=== PATIENT | male | born 1960 | race Caucasian/White ===

== ENCOUNTER 2024-09-08 10:55 | Inpatient (IN) | payer OTHER ==
[2024-09-08 11:12] VITALS: BMI 28.1
[2024-09-08] MEDS ORDERED: POLYETHYLENE GLYCOL (HEALTHYLAX) 3350 17 GM PACKET PO PRN (11:24)
[2024-09-08] MEDS ORDERED: NALOXONE (NYS OPIOID OVERDOSE PROGRAM) 4 MG/0.1 ML SPRAY NS PRN (11:24)
[2024-09-08] MEDS ORDERED: DICYCLOMINE HCL 10 MG CAPSULE PO PRN (11:24)
[2024-09-08] MEDS ORDERED: NALOXONE (NARCAN) HCL 4 MG/0.1 ML SPRAY NS PRN (11:24)
[2024-09-08] MEDS ORDERED: P-EPHED 60MG/TRIPROLIDI 2.5MG TABLET PO PRN (11:24)
[2024-09-08] MEDS ORDERED: IBUPROFEN 600 MG TABLET (FP) PO PRN (11:24)
[2024-09-08] MEDS ORDERED: BENZONATATE 200 MG CAPSULE PO PRN (11:24)
[2024-09-08] MEDS ORDERED: LOPERAMIDE HCL 2 MG CAPSULE PO PRN (11:24)
[2024-09-08] MEDS ORDERED: MAGNESIUM HYDROX 2400MG/30ML ORAL SUSPENSION 30 ML CUP PO PRN (11:24)
[2024-09-08] MEDS ORDERED: IBUPROFEN 400 MG TABLET (FP) PO PRN (11:24)
[2024-09-08] MEDS ORDERED: BISMUTH SUBSALICYLATE 524 MG/30 ML PO PRN (11:24)
[2024-09-08] MEDS ORDERED: MAG HYDROX/AL HYDROX/SIMETH 30 ML UNIT-DOSE CUP PO PRN (11:24)
[2024-09-08] MEDS ORDERED: guaiFENesin 600 MG TABLET.ER (FP) PO PRN (11:24)
[2024-09-08] MEDS ORDERED: BENZOCAINE/MENTHOL (CHLORASEPTIC ) LOZENGE MM PRN (11:24)
[2024-09-08] MEDS: METHOCARBAMOL 500 MG TABLET PO PRN (15:06)
[2024-09-08] MEDS: hydrOXYzine PAMOATE 25 MG CAPSULE (FP) PO PRN (15:06)
[2024-09-08] MEDS: amLODIPine BESYLATE 10 MG TABLET (FP) PO ONE (15:44)
[2024-09-08] MEDS: cloNIDine HCL 0.1 MG TABLET PO ONE (17:48)
[2024-09-08] MEDS: ONDANSETRON *ODT* 4 MG TABLET SL PRN (18:37)
[2024-09-08] MEDS: methaDONE HCL 10 MG TABLET (FOR DETOX USE ONLY) PO ONE (19:01)
[2024-09-08] MEDS: THIAMINE 100 MG TABLET PO SCH (22:26)
[2024-09-08] MEDS: MELATONIN 5 MG TABLETS PO SCH (22:26)
[2024-09-09] MEDS: PANTOPRAZOLE 20 MG TABLET PO SCH (07:23)
[2024-09-09] MEDS: predniSONE 10 MG TABLET (UD) PO SCH (09:49)
[2024-09-09] MEDS: PRENATAL VITAMINS W/ FOLIC ACID TABLET (FP) PO SCH (09:51)
[2024-09-09] MEDS: DICLOFENAC SODIUM TP PRN (11:00)
[2024-09-09] MEDS: [UNRECOGNIZED DRUG - OTHER] TP PRN (11:00)
[2024-09-09 13:23] LABS: HEMATOCRIT 34.8 % (35.4-49); HEMOGLOBIN 11.7 GM/dL (11.7-16.9); MCH 28.9 pg (25.7-33.7); MCHC 33.6 g/dl (32.0-35.9); MEAN CELL VOLUME 86.1 fl (80-96); MEAN PLT VOLUME 8.9 fl (7.5-11.1); PLATELET COUNT 331 10^3/uL (134-434); RBC 4.04 M/mm3 (4.00-5.60); RDW 14.8 % (11.9-15.9); WHITE BLOOD COUNT 7.8 K/mm3 (4.0-10.0)
[2024-09-09 13:55] LABS: CALCIUM 9.5 mg/dL (8.5-10.1)
[2024-09-09 13:56] LABS: ALBUMIN 3.3 g/dl (3.4-5.0); BLOOD UREA NITROGEN 18.5 mg/dL (7-18)
[2024-09-09 13:59] LABS: CREATININE 1.2 mg/dL (0.55-1.3)
[2024-09-09 14:00] LABS: BILIRUBIN,TOTAL 0.7 mg/dL (0.2-1); TOT PROT 6.8 g/dl (6.4-8.2)
[2024-09-09] MEDS: cloNIDine HCL 0.1 MG TABLET PO PRN (22:18)
[2024-09-09] MEDS: TETRAHYDROZOLINE HCL EYE DROPS OU PRN (22:41)
[2024-09-10] MEDS: methaDONE HCL 10 MG TABLET (FOR DETOX USE ONLY) PO ONE (09:18)
[2024-09-11] MEDS: ACETAMINOPHEN 325 MG TABLET (FP) PO PRN (08:45)
[2024-09-11] MEDS ORDERED: IBUPROFEN 600 MG TABLET (FP) PO PRN (08:59)
[2024-09-12] MEDS: methaDONE HCL 10 MG TABLET (FOR DETOX USE ONLY) PO ONE (09:44)
[2024-09-13] MEDS: amLODIPine BESYLATE 10 MG TABLET (FP) PO SCH (12:24)
[2024-09-13] MEDS: METOPROLOL TARTRATE 25 MG TABLET (FP) PO ONE (17:30)
[2024-09-14 06:27] VITALS: RESP 16; TEMP 97.8
[2024-09-14 09:31] VITALS: BP 164/102; PULSE 98
[2024-09-15] MEDS ORDERED: METHOTREXATE 2.5 MG TABLET PO SCH ×2 (09:00)
== END 2024-09-14 12:33 | disposition other institution (70) | DRG 773 ==
LOC: YASAS 10:55 → Y3N 14:19
PROVIDERS: ADMIT Allergy & Immunology; ATTEND Surgery
PROC: HZ2ZZZZ Detoxification Services for Substance Abuse Treatment (ICD-10-PCS; principal; 2024-09-08)
DX: F11.23 Opioid dependence with withdrawal (principal); F14.20 Cocaine dependence, uncomplicated; L40.50 Arthropathic psoriasis, unspecified; R03.0 Elevated blood-pressure reading, without diagnosis of hypertension; Z87.891 Personal history of nicotine dependence
CPT/HCPCS: 36415; 80053; 80305; 80307; 85027; 86593; 86780; 87811; 93005; 93010; Q0162

== ENCOUNTER 2024-09-14 13:02 | Inpatient (IN) | payer OTHER ==
[2024-09-14] MEDS ORDERED: guaiFENesin 600 MG TABLET.ER (FP) PO PRN (16:03)
[2024-09-14] MEDS ORDERED: NALOXONE HCL 0.4 MG/ML VIAL IVPUSH PRN (16:03)
[2024-09-14] MEDS ORDERED: BENZONATATE 200 MG CAPSULE PO PRN (16:03)
[2024-09-14] MEDS ORDERED: POLYETHYLENE GLYCOL (HEALTHYLAX) 3350 17 GM PACKET PO PRN (16:03)
[2024-09-14] MEDS ORDERED: NICOTINE POLACRILEX 4 MG LOZENGE BC PRN (16:03)
[2024-09-14] MEDS ORDERED: NICOTINE POLACRILEX 4 MG GUM BUC PRN (16:03)
[2024-09-14] MEDS ORDERED: NICOTINE 14 MG/24 HOURS TOPICAL PATCH TD PRN (16:03)
[2024-09-14] MEDS ORDERED: BENZOCAINE/MENTHOL (CHLORASEPTIC ) LOZENGE MM PRN (16:03)
[2024-09-14] MEDS ORDERED: NALOXONE (NARCAN) HCL 4 MG/0.1 ML SPRAY NS PRN (16:03)
[2024-09-14] MEDS ORDERED: IBUPROFEN 400 MG TABLET (FP) PO PRN (16:03)
[2024-09-14] MEDS: THIAMINE 100 MG TABLET PO SCH (21:57)
[2024-09-14] MEDS: MELATONIN 5 MG TABLETS PO SCH (21:57)
[2024-09-15] MEDS: DICLOFENAC SODIUM TP PRN (06:30)
[2024-09-15] MEDS: TETRAHYDROZOLINE HCL EYE DROPS OU PRN (06:30)
[2024-09-15] MEDS ORDERED: PATIENT'S OWN MEDICATION (NON-FORMULARY) (Dextran 70/Hypromellose [Artificial Tears Eye Dr OU PRN (06:48)
[2024-09-15] MEDS: METHOTREXATE 2.5 MG TABLET PO SCH (08:06)
[2024-09-15] MEDS ORDERED: PATIENT'S OWN MEDICATION (NON-FORMULARY) (Dextran 70/Hypromellose [Artificial Tears Eye Dr OU SCH (10:00)
[2024-09-15] MEDS: PRENATAL VITAMINS W/ FOLIC ACID TABLET (FP) PO SCH (10:45)
[2024-09-15] MEDS: PANTOPRAZOLE 20 MG TABLET PO SCH (10:45)
[2024-09-15] MEDS: predniSONE 10 MG TABLET (UD) PO SCH (10:45)
[2024-09-15] MEDS: MAG HYDROX/AL HYDROX/SIMETH 30 ML UNIT-DOSE CUP PO PRN (15:42)
[2024-09-15] MEDS: METHOCARBAMOL 500 MG TABLET PO PRN (21:19)
[2024-09-16] MEDS: PATIENT'S OWN MEDICATION (NON-FORMULARY) (Diclofenac Sodium 0.01 MG/MG Gel) TP SCH (05:46)
[2024-09-16] MEDS: IBUPROFEN 600 MG TABLET (FP) PO PRN (06:22)
[2024-09-16] MEDS ORDERED: DICYCLOMINE HCL 10 MG CAPSULE PO PRN (13:29)
[2024-09-16] MEDS ORDERED: BISMUTH SUBSALICYLATE 262 MG/15 ML BTL PO PRN (13:29)
[2024-09-16] MEDS ORDERED: ONDANSETRON *ODT* 4 MG TABLET SL PRN (13:29)
[2024-09-16] MEDS: MELATONIN 5 MG TABLETS PO SCH (21:12)
[2024-09-17] MEDS: hydrOXYzine PAMOATE 25 MG CAPSULE (FP) PO PRN (08:52)
[2024-09-17] MEDS: predniSONE 5 MG TABLET (UD) PO SCH (09:50)
[2024-09-17] MEDS: PATIENT'S OWN MEDICATION (NON-FORMULARY) (Etanercept [Enbrel] 50 MG/ML Syringe) SQ ONE (16:12)
[2024-09-17] MEDS ORDERED: PATIENT'S OWN MEDICATION (NON-FORMULARY) (Etanercept [Enbrel] 50 MG/ML Syringe) SQ ONE (16:30)
[2024-09-18] MEDS: ACETAMINOPHEN 325 MG TABLET (FP) PO PRN (06:11)
[2024-09-18] MEDS: NAPROXEN 500 MG TABLET PO ONE (10:26)
[2024-09-18] MEDS: MAGNESIUM HYDROX 2400MG/30ML ORAL SUSPENSION 30 ML CUP PO PRN (10:28)
[2024-09-19] MEDS: LOPERAMIDE HCL 2 MG CAPSULE PO PRN (12:41)
[2024-09-20] MEDS: GABAPENTIN 100 MG CAPSULE PO SCH (12:37)
[2024-09-22] MEDS ORDERED: PATIENT'S OWN MEDICATION (NON-FORMULARY) (Etanercept [Enbrel] 50 MG/ML Syringe) SQ SCH (07:00)
[2024-09-24] MEDS: PATIENT'S OWN MEDICATION (NON-FORMULARY) (Etanercept [Enbrel] 50 MG/ML Syringe) SQ ONE (10:49)
[2024-09-24] MEDS: NAPROXEN 250 MG TABLET PO PRN (10:53)
[2024-09-24] MEDS: METHYL SALICYLATE/MENTHOL 30 GM TUBE TP SCH (13:39)
[2024-09-27] MEDS: ARTIFICIAL TEARS OPHTHALMIC DROPS OU PRN (09:46)
[2024-09-28 06:35] VITALS: RESP 16; TEMP 97.8
[2024-09-28] MEDS: NALOXONE (NYS OPIOID OVERDOSE PROGRAM) 4 MG/0.1 ML SPRAY NS PRN (09:30)
[2024-09-28] MEDS: NALOXONE (NARCAN) HCL 4 MG/0.1 ML SPRAY NS ONE (10:49)
[2024-09-28 10:52] VITALS: BP 152/87; PULSE 102
== END 2024-09-28 09:30 | disposition home or self-care (01) | DRG 772 ==
LOC: YASAS 13:02 → Y3E 13:03 → UNDOADMIN 13:03 → Y3E 09-15 13:00 → Y5N 09-18 22:56 → Y3E 09-18 22:56 → Y3N 09-18 23:26 → Y5N 09-18 23:30
PROVIDERS: ADMIT Psychiatry & Neurology Pain Medicine; ATTEND Psychiatry & Neurology Pain Medicine
PROC: HZ42ZZZ Group Counseling for Substance Abuse Treatment, Cognitive-Behavioral (ICD-10-PCS; principal; 2024-09-18)
DX: F11.20 Opioid dependence, uncomplicated (principal); F14.20 Cocaine dependence, uncomplicated; L40.50 Arthropathic psoriasis, unspecified; R03.0 Elevated blood-pressure reading, without diagnosis of hypertension; Z87.891 Personal history of nicotine dependence
CPT/HCPCS: 82962; 83036; J8610